=== PATIENT | male | born 1965 | race Caucasian/White ===

== ENCOUNTER 2024-07-24 12:36 | Outpatient (CLI) | payer OTHER, SELFPAY ==
--- NOTE | ~2024-07-24 | PE_ITS ---
EXAMINATION: PET_PETPSMAST_PT DATE: 07/24/2024 15:42 INDICATION: Malignant neoplasm of prostate. TECHNIQUE: 5.325 mCi of Ga-68 gozetotide was administered intravenously. Low dose computed tomography (CT) images were acquired from the base of the brain to the proximal thighs for attenuation correcti on and anatomic localization. Automated exposure control was employed. Dose-length product (DLP) was 1032 mGy-cm. Positron emission tomography (PET) images were acquired in the same distribution. COMPARISON: None FINDINGS: Head/neck: There are likely changes of right ocular lens replacement surgery. There are no pathologic ally enlarged lymph nodes. Chest: There is no pneumonia or pleural effusion. The heart size is normal. No pericardial effusion. There are coronary artery calcifications. There are no pathologically enlarged lymph nodes. Abdomen/pelvis/proximal thighs: There is an 8 mm cyst in the liver. The gallbladder, spleen, pancreas , and right adrenal gland are normal. There is a 4.4 cm mass in left adrenal gland measuring soft tis cherie attenuation with focal calcification without increased activity. The kidneys are normal. The pros velez is mildly enlarged. There is increased activity in the prostate with maximum SUV of 8.1. There i s diverticulosis of the colon without evidence of diverticulitis. There are no dilated loops of bowel . The appendix is normal. There are no pathologically enlarged lymph nodes. There is no ascites. Ther e is no osseous malignancy. IMPRESSION: 1. Mildly enlarged prostate with increased activity, consistent with primary malignancy. No evidence of metastatic prostate cancer. 2. 4.4 cm left adrenal mass without specific imaging features. If there is no outside imaging to conf irm that this finding is chronic, consider resection to exclude adrenal cortical carcinoma. Reviewed, dictated and finalized at location B. IMPRESSION: 1. Mildly enlarged prostate with increased activity, consistent with primary ma lignancy. No evidence of metastatic prostate cancer. 2. 4.4 cm left adrenal mass without specific imaging features. If there is no o utside imaging to confirm that this finding is chronic, consider resection to e xclude adrenal cortical carcinoma.
--- OUTSIDE RECORDS SUMMARY | 2024-07-24 13:56 | XMS_ITS | Encounter Summary ---
Author Organization [facility] Address [facility] [place] [address] Care Team Providers Care Certified Juvenile Probation Officer Name Role Phone Prince Yadav MD Primary Care Provider [phone] Encounter Details Date Type Department Care Team (Latest Contact Info) Description 07/16/2024 Scan HEALTH INFO SRVCS Scanned, Doc Med Group Social History Tobacco Use Types Packs/Day Years Used Date Smoking Tobacco: Never Passive Smoke Exposure: Never Smokeless Tobacco: Never Alcohol Use Standard Drinks/Week Comments Yes 0 (1 standard drink = 0.6 oz pur e alcohol) 2-3 per week PHQ-2 Answer Date Recorded Patient Health Questionnaire-2 Score 0 07/16/2024 Sex and Gender Information Value Date Recorded Sex Assigned at Male 07/09/2024 5:07 AM STEP FINISHER Legal Sex Male 6:27 PM CDT Gender Identity Not on file Sexual Orientation Not on file 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 [address] [place], [place] [phone] documented as of this encounter Visit Diagnoses Not on filedocumented in this encounter Care Teams Certified Juvenile Probation Officer Relationship Specialty Start Date End Date Prince Yadav MD [address] [place] [id number] PCP - General FAMILY PRACTICE 01/08/24 documented as of this encounter
--- OUTSIDE RECORDS SUMMARY | 2024-07-24 13:56 | XMS_ITS | Patient Health Summary ---
Author Organization [facility] Address [address] [place] [address] Care Team Providers Care Auto Polisher Name Role Phone Trav Porter MD Primary Care Provider [phone] Aman Louis MD Unavailable [phone] Note from [facility],non-owned Affiliates and Associated Physician Practices is amultiple site organization consisting of ambulatory clinics and hospital sitesin [place], [place], [place] and [place]. This disclosure is being madepursuant to the Care Everywhere program and may not contain all information available regarding this patient. Last updated 18.[facility] Allergies No known active allergies Medications * Be aware that medications may not be up to date on this document. Alwaysverify current medications with the patient. * losartan (COZAAR) 100 MG tablet(Started 12/16/2019) Take 100 mg by mouth once daily * atorvastatin (LIPITOR) 40 MG tablet(Started 11/04/2019) Take 40 mg by mouth once daily * metoprolol succinate XL 24hr (TOPROL XL) 25 MG tablet(Started 11/04/2019) Take 25 mg by mouth once daily * hydroCHLOROthiazide (HYDRODIURIL) 25 MG tablet(Started 05/23/2019) Take 1 tablet by mouth once daily * amLODIPine (NORVASC) 10 MG tablet(Started 06/18/2019) Take 10 mg by mouth once daily * omeprazole (PRILOSEC) 20 MG capsule(Started 11/06/2019) Take 20 mg by mouth once daily * meloxicam (MOBIC) 15 MG tablet(Started 07/08/2021) Take 1 (one) tablet by mouth once daily LAST REFILL UNTIL SEEN IN THE OFFICE * meloxicam (Mobic) 15 MG tablet(Started 07/28/2023) TAKE 1 TABLET BY MOUTH EVERY DAY 5 refills by 07/27/2024 Active Problems Problem Noted Date Diagnosed Date Primary osteoarthritis of left knee 01/28/2020 Coronary artery disease invo lving [place] coronary artery of [place] heart without angina pectoris 08/05/2019 Thoracic aortic aneurysm without rupture 020 Social History Tobacco Use Types Packs/Day Years Used Date Smoking Tobacco: Never Smokeless Tobacco: Never Sex and Gender Information Value Date Recorded Sex Assigned at Not on file Gender Identity Not on file Sexual Orientation Not on file Last Filed Vital Signs Vital Sign Reading Time Taken Comments Blood Pressure - - Pulse - - Temperature - - Respiratory Rate - - Oxygen Saturation - - Inhaled Oxygen Concentration - - Weight 81.6 kg (180 lb) 01/28/2020 10:06 AM CDT Height 172.7 cm (5' 8 ) 01/28/2020 10:06 AM CDT Body Mass Index 27.37 01/28/2020 10:06 AM CDT Procedures * XR KNEE LEFT 3VW(Performed 08/13/2021) Performed for Left knee pain, unspecified chronicity Results * XR KNEE LEFT 3VW (08/13/2021 9:40 AM CDT) Anatomical Region Laterality Modality Lower Extremity Computed Radiogr aphy Narrative 08/13/2021 9:41 AM CDT Ronda Aguirre RT(R) 08/24/2021 10:44 AM See progress notes for results Aman Louis MD DIAGNOSTIC IMAGING [facility] Care Teams Auto Polisher Relationship Specialty Start Date End Date Trav Porter MD [address] [id number] PCP - General Family Medicine 01/28/20 [place] [id number] [address] Surgeon Orthopedic Surgery 01/28/20
--- OUTSIDE RECORDS SUMMARY | 2024-07-24 13:56 | XMS_ITS | Clinical Summary ---
Author Organization [facility] [employer] Address [address] [facility] [place] [address] Care Team Providers Care Smoke Chaser Name Role Phone Trav Porter MD Primary Care Provider [phone] Aman Louis MD Unavailable [phone] Source Comments [facility] [employer],non-owned Affiliates and Associated Physician Practices is amultiple site organization consisting of ambulatory clinics and hospital sitesin [place], [place], [place] and [place]. This disclosure is being madepursuant to the Care Everywhere program and may not contain all information available regarding this patient. Last updated 18.[facility] [employer] Allergies No known active allergies Medications * Be aware that medications may not be up to date on this document. Alwaysverify current medications with the patient. Medication Sig Dispensed Refills Start Date End Date Status losartan (COZAAR) 100 MG tablet Take 100 mg by mouth once daily 12/16/2019 Active atorvastatin (LIPITOR) 40 MG tablet Take 40 mg by mouth once daily 11/04/2019 Active metoprolol succinate XL 24hr (TOPROL XL) 25 MG tablet Take 25 mg by mouth once daily 11/04/2019 Active hydroCHLOROthiazide (HYDRODIURIL) 25 MG tablet Take 1 tablet by mouth once daily 05/23/2019 Active amLODIPine (NORVASC) 10 MG tablet Take 10 mg by mouth once daily 06/18/2019 Active omeprazole (PRILOSEC) 20 MG capsule Take 20 mg by mouth once daily 11/06/2019 Active meloxicam (MOBIC) 15 MG tabletIndications:Prima ry osteoarthritis of left knee Take 1 (one) tablet by mouth once daily LAST REFILL UNTIL SEEN IN THE OFFICE 30 tablet 07/08/2021 Active meloxicam (Mobic) 15 MG tablet TAKE 1 TABLET BY MOUTH EVERY DAY 30 tablet 5 07/28/2023 Active Active Problems Problem Noted Date Diagnosed Date Primary osteoarthritis of left knee 01/28/2020 Coronary artery disease invo lving [place] coronary artery of [place] heart without angina pectoris 08/05/2019 Thoracic aortic aneurysm without rupture 020 Encounters Date Type Department Care Team Description 07/07/2024 Refill [facility] [address] [place] [address], [facility] [address] [place] [phone] Aman Louis MD Refill Request from Last 3 Months Social History Tobacco Use Types Packs/Day Years [...] Mass Index 27.37 01/28/2020 10:06 AM CDT Plan of Treatment Upcoming Encounters Date Type Department Care Team (Late st Contact Info) Description 08/08/2024 11:20 AM CDT Office Visit [address], [address] [phone] Kenneth Barrientos PA-C [address] [phone] Health Maintenance Due Date Last Done Comments COLOGUARD (AGES 45-75) - COL ON CA SCREENING 1965 COLON MONITORING 1965 COLONOSCOPY - COLON CA SCREENING 1965 CT COLONOGRAPHY - COLON CA SCREENING 1965 Colorectal Cancer Screening 1965 FIT - COLON CA SCREENING 1965 FLEX SIG - COLON CA SCREENING 1965 HIV SCREENING 1980 HEPATITIS C SCREENING 11/20/1983 DTAP/TDAP/TD VACCINES (1 - Tdap) 1984 HEPATITIS B VACCINE (1 of 3 - 19+ 3-dose series) 1984 PNEUMOCOCCAL VACCINE 50+ (1 of 1 - PCV) 11/25/2015 ZOSTER VACCINE (1 of 2) 11/25/2015 COVID-19 VACCINE (1 - 2023-2 5 season) 2024 INFLUENZA VACCINE (#1) 2024 DEPRESSION SCREENING 05/15/2024 HIB VACCINE Aged Out No longer eligi ble based on patient's age to complete this topic HPV VACCINE Aged Out No longer eligi ble based on patient's age to complete this topic MENINGOCOCCAL (Group B) VACC INE SHARED DECISION-MAKING Aged Out No longer eligibl e based on patient's age to complete this topic MENINGOCOCCAL GROUPS A/C/Y/W VACCINE Aged Out No longer eligible b ased on patient's age to complete this topic Care Teams Smoke Chaser Relationship Specialty Start Date End Date Trav Porter MD [address] [phone] PCP - General Family Medicine 01/28/20 [place] [address] [address] Surgeon Orthopedic Surgery 01/28/20
--- OUTSIDE RECORDS SUMMARY | 2024-07-24 13:56 | XMS_ITS | Referral Summary ---
Author Organization [facility] Address [facility] [place] [address] Care Team Providers Care Inventory Coordinator Name Role Phone Trav Porter MD Primary Care Provider [phone] Allergies No known active allergies Medications amLODIPine (NORVASC) 10 mg tablet TK 1 T PO QD 06/18/2019 Active benazepriL (LOTENSIN) 20 mg tablet 05/23/2019 Active hydroCHLOROthia zide (HYDRODIURIL) 25 mg tablet TK 1 T PO ONCE D 05/23/2019 Active meloxicam (MOBIC) 15 mg tablet TK 1 T PO QD WITH FOOD 06/21/2019 Active omeprazole (PriLOSEC) 20 mg capsule Take 20 mg by mouth daily 07/05/2019 Active sildenafil (VIAGRA) 50 mg tablet Take by mouth daily as needed 07/08/2019 Active simvastatin (ZOCOR) 10 mg tablet TK 1 T PO QHS 06/21/2019 Active loratadine 10 mg capsule Take 1 capsule by mouth daily as needed 03/12/2013 Active metoprolol XL (TOPROL-XL) 25 mg extended release tablet Take 25 mg by mouth daily 11/04/2019 Active losartan (COZAAR) 50 mg tablet Take 50 mg by mouth daily 11/04/2019 Active atorvastatin (LIPITOR) 40 mg tablet Take 40 mg by mouth daily 11/04/2019 Active Active Problems Problem Noted Date Diagnosed Date Primary osteoarthritis of left knee 07/09/2019 Left knee pain 07/09/2019 Effusion of left knee 07/09/2019 Chondromalacia of patella 04/20/2010 Social History Tobacco Use Types Packs/Day Years Used Date Smoking Tobacco: Never Smokeless Tobacco: Never Alcohol Use Standard Drinks/Week Comments Yes 0 (1 standard drink = 0.6 oz pur e alcohol) Personal Safety Answer Date Recorded Getting School Help Needed Not on file 07/28 Sex and Gender Information Value Date Recorded Sex Assigned at Not on file 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 Gender Identity Not on file Sexual Orientation Not on file 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 on file Not on file Not on serina e Last Filed Vital Signs Vital Sign Reading Time Taken Comments Blood Pressure - - Pulse - - Temperature - - Respiratory Rate - - Oxygen Saturation - - Inhaled Oxygen Concentration - - Weight 79.8 kg (176 lb) 11/05/2019 9:47 AM CDT Height 172.7 cm (5' 8 ) 11/05/2019 9:47 AM CDT Body Mass Index 26.76 11/05/2019 9:47 AM CDT Plan of Treatment Not on file Insurance [facility] CHO[facility] PLUS [facility] CHO[facility] PLUS Care Teams Inventory Coordinator Relationship Specialty Start Date End Date Trav Porter MD [address] [place] [address] PCP - General Family Medicine 07/01/19
--- OUTSIDE RECORDS SUMMARY | 2024-07-24 13:56 | XMS_ITS | Clinical Summary ---
Author Organization [facility] Address [address] [place] [address] Care Team Providers Care Occupational Therapy Professor Name Role Phone Prince Yadav MD Primary Care Provider [phone] Allergies No known active allergies Medications Multiple Vitamin (DAILY VITAMIN OR) Take 1 tablet by mouth daily. Active glucosamine-chond roitin 500-400 MG Cap Take 1 capsule by mouth daily. Active meloxicam 15 MG tablet Take 1 tablet (15 mg total) by mouth daily. 020 Active Zinc 100 MG Tab Take 1 tablet by mouth daily. Active Ascorbic Acid (VITAMIN C) 100 MG tablet Take 1 tablet (100 mg total) by mouth daily. Active clobetasol (TEMOVATE) 0.05 % external solution Apply topically 2 (two) times daily. 023 Active hydroCHLOROthiazi de (HYDRODIURIL) 25 MG tabletIndications :Hypertension, essential TAKE 1 TABLET(25 MG) BY MOUTH DAILY 90 tablet 3 024 Active losartan (COZAAR) 100 MG tablet TAKE 1 TABLET(100 MG) BY MOUTH DAILY 90 tablet 3 024 Active metoprolol succinate ER (TOPROL-XL) 25 MG 24 hr tablet TAKE 1 TABLET(25 MG) BY MOUTH DAILY 90 tablet 3 024 Active amLODIPine (NORVASC) 10 MG tablet TAKE 1 TABLET(10 MG) BY MOUTH DAILY 90 tablet 2 024 Active omeprazole (PRILOSEC) 40 MG capsule TAKE 1 CAPSULE BY MOUTH 30 MINUTES BEFORE MORNING MEAL ONCE DAILY FOR 90 DAYS Active sildenafil (VIAGRA) 50 MG tabletIndications :Erectile dysfunction, unspecified erectile dysfunction type Take 1 tablet (50 mg total) by mouth daily as needed for Erectile Dysfunction. 30 tablet 3 024 Active atorvastatin (LIPITOR) 40 MG tabletIndications :Mixed hyperlipidemia Take 1 tablet (40 mg total) by mouth nightly at bedtime. PLEASE CALL OFFICE TO SCHEDULE APPOINTMENT 30 tablet Active tamsulosin (FLOMAX) 0.4 MG Cap Take 1 capsule (0.4 mg total) by mouth daily. 30 capsule Active Additional Information Patient not taking.Reported on 07/16/2024 fexofenadine (BRANDON) 180 MG tablet Take 1 tablet (180 mg total) by mouth daily as needed for Allergies. Active Loratadine 10 MG Cap Take 1 capsule by mouth daily as needed. 013 2024 Discontinued respiratory syncytial virus vaccine, recombinant (ABRYSVO) 120 mcg/0.5mL injectionIndicati ons:Prostate cancer ([facility]) Inject 0.5 mLs into the muscle once for 1 dose. 0.5 mL 025 2024 Active Problems Problem Noted Date Diagnosed Date Skin lesion 01/09/2020 Coronary artery disease invo lving [place] coronary artery of [place] heart without angina pectoris 08/05/2019 Assessment & Plan (07/15/2024 10:44 AM PROCUREMENT ACCOUNTANT): He has coronary artery calcifications present on CT scans. Continue risk factor modifications with atorvastatin, low fat and low cholesterol diet. Assessment & Plan (07/16/2023 7:41 AM PROCUREMENT ACCOUNTANT): Assessment: He has coronary artery calcification on a CT scan. Continue aspirin Dose: 81mg and atorvastatin. Lifestyle modifications: follow a low fat, low cholesterol diet Assessment & Plan (06/21/2021 9:23 AM PROCUREMENT ACCOUNTANT): Assessment: He has coronary artery calcification on a CT scan. Plan: : Diagnostic Testing: Antiplatelet therapy: continue Aspirin Dose: 81mg Lipid lowering medications: continue atorvastatin Lifestyle modifications: follow a low fat, low cholesterol diet Ascending aortic aneurysm 08/05/2019 Assessment & Plan (07/15/2024 10:46 AM PROCUREMENT ACCOUNTANT): Stable ascending aortic aneurysm on CTA from 2023. Plan for repeat imaging in 1- 2 years. Continue blood pressure control with losartan and metoprolol. Assessment & Plan (07/11/2023 6:28 AM PROCUREMENT ACCOUNTANT): Most recent CTA chest shows stable aneurysm. Surgical intervention not needed at this time. Can repeat imaging in 2-3 years. Continue medical management with beta- marianne and antihypertensives. Of note, Assessment & Plan (06/21/2021 9:22 AM PROCUREMENT ACCOUNTANT): Assessment: Repeat imaging of ascending aortic aneurysm is stable compared to prior imaging. Plan: Repeat imaging of aneurysm in 2 years Continue blood pressure control Left knee pain 07/09/2019 Primary osteoarthritis of left knee 07/09/2019 Erectile dysfunction, unspecified erectile dysfu nction type 10/03/2018 Gastroesophageal reflux disease without esophagi tis 09/05/2012 Allergic rhinitis 09/05/2012 Overview (09/26/2018): Description: seasonal Mixed hyperlipidemia 09/05/2012 Assessment & Plan (07/15/2024 10:49 AM PROCUREMENT ACCOUNTANT): Last lipid panel with LDL not calculated due to elevated triglyceride levels. Encouraged lifestyle and exercise modifications for further control. Continue atorvastatin. Assessment & Plan (07/16/2023 7:43 AM PROCUREMENT ACCOUNTANT): His last lipid panel was from 2021 and he is going to get a more up-to-date lipid panel with a new primary care physician. Continue atorvastatin. Assessment & Plan (06/21/2021 9:26 AM PROCUREMENT ACCOUNTANT): Assessment: elevated cholesterol only LDL result meets goal Plan: : Diagnostic Testing: none Lipid lowering medications: continue atorvastatin Lifestyle modifications: diet, regular aerobic exercise and weight loss Essential hypertension 09/05/2012 Overview (09/26/2018): Description: 1991, 1997 echo Assessment & Plan (07/15/2024 10:48 AM PROCUREMENT ACCOUNTANT): Blood pressure slightly elevated in office today. Patient regularly monitor blood pressure at home with an average reading of 130-140/80-90mmHg. Continue losartan, metoprolol, and HCTZ Assessment & Plan (07/16/2023 7:42 AM PROCUREMENT ACCOUNTANT): Blood pressure mildly elevated. Encouraged home blood pressure monitoring and he is checking his blood pressure at home and is usually well-controlled. Continue amlodipine, losartan, metoprolol. Assessment & Plan (06/21/2021 9:25 AM PROCUREMENT ACCOUNTANT): Assessment: BP noted to be mildly elevated today in office though normal at other visits Plan: : Diagnostic Testing: none Antihypertensive medications: continue hydrochlorothiazide, losartan and amlodipine Lifestyle modifications: current treatment plan is effective, no change in therapy Encouraged home blood pressure monitoring Chondromalacia of patella 04/20/2010 Arthritis Cervical strain Resolved Problems Problem Noted Date Diagnosed Date Resolved Date Prostate cancer screening 09/05/2012 Encounters Date Type Department Care Team Description 07/16/2024 4:40 PM PROCUREMENT ACCOUNTANT Office Visit [facility] - [place] [phone] Prince Yadav MD Follow Up (Patient is present for 6 month follow up) 07/16/2024 Scan [facility] Scanned, [facility] 07/16/2024 Travel 07/15/2024 10:00 AM PROCUREMENT ACCOUNTANT [facility], [address] [address] Mike Escamilla MD Lanter, Megan N, [place] Coronary Artery Disease (Annual); Hypertension; Lipids; Thoracic Aortic Aneurysm 07/15/2024 Travel 07/09/2024 6:10 PM PROCUREMENT ACCOUNTANT - 07/09/2024 9:11 PM PROCUREMENT ACCOUNTANT Emergency [facility] [place] [address] Schuyler Lizarraga MD Urinary Catheter Problem Discharge Disposition: Home or Self Care (Routine Discharge) 07/09/2024 4:49 AM PROCUREMENT ACCOUNTANT - 07/09/2024 9:56 AM PROCUREMENT ACCOUNTANT Emergency [facility] [place] [address] Avery Salazar MD,PHD Hematuria Discharge Disposition: Home or Self Care (Routine Discharge) 07/09/2024 Travel from Last 3 Months Immunizations Name Administration Dates Next Due Td (Tenivac) preservative free 05/24/2005 Tdap (Generic) 07/27/2015 Family History Medical History Relation Comments Hypertension Father Open Heart Father artificial valve Father Stroke Mother Relation Status Comments Brother 1 Alive Brother 2 Alive Brother 3 Alive Father (Age 91) Maternal Grandfather Maternal Grandmother Mother (Age 90) Paternal Grandfather Paternal Grandmother Sister 1 Alive Sister 2 Alive Sister 3 Alive Social History Tobacco Use Types Packs/Day Years Used Date Smoking Tobacco: Never Passive Smoke Exposure: Never Smokeless Tobacco: Never Tobacco Cessation:Counseling Given: No Alcohol Use Standard Drinks/Week Comments Yes 0 (1 standard drink = 0.6 oz pur e alcohol) 2-3 per week PHQ-2 Answer Date Recorded Patient Health Questionnaire-2 Score 0 07/16/2024 Sex and Gender Information Value Date Recorded Sex Assigned at Male 07/09/2024 5:07 AM PROCUREMENT ACCOUNTANT Legal Sex Male 6:27 PM CDT Gender Identity Not on file Sexual Orientation Not on file Occupation Industry Job Start Date Job End Date [employer] IN[employer]ER Not on file Not on file Not on file Last Filed Vital Signs Vital Sign Reading Time Taken Comments Blood Pressure 130/70 07/16/2024 4:39 PM PROCUREMENT ACCOUNTANT Pulse 70 07/16/2024 4:39 PM PROCUREMENT ACCOUNTANT Temperature 37.2 C (98.9 F) 07/16/2024 4:39 PM PROCUREMENT ACCOUNTANT Respiratory Rate 16 07/09/2024 9:09 PM PROCUREMENT ACCOUNTANT Oxygen Saturation 99% 07/16/2024 4:39 PM PROCUREMENT ACCOUNTANT Inhaled Oxygen Concentration - - Weight 82.1 kg (181 lb) 07/16/2024 4:39 PM PROCUREMENT ACCOUNTANT Height 175.3 cm (5' 9 ) 07/15/2024 9:50 AM PROCUREMENT ACCOUNTANT Body Mass Index 26.73 07/15/2024 9:50 AM PROCUREMENT ACCOUNTANT Plan of Treatment Upcoming Encounters Date Type Department Care Team (Late st Contact Info) Description 03/17/2025 10:30 AM PROCUREMENT ACCOUNTANT Office Visit [facility], [facility] [address] [place], [place] [id number] Mike Escamilla MD [facility]. [address] [place], [place] [id number] Health Maintenance Due Date Last Done Comments Colorectal Cancer Screening Colonoscopy (10 Years) 1965 Pneumococcal Vaccine: Pediatrics (0 to 5 Years) and At-Risk Patients (6 to 64 Years) (1 of 2 - PCV) 11/25/1971 Hepatitis C 11/25/1983 Hepatitis B Vaccines (1 of 3 - 19+ 3-dose series) 1984 Zoster Vaccines (1 of 2) 11/25/2015 ASCVD LDL 03/31/2023 03/31/2022, 08/0 06/2020, 03/13/2020, Additional history exists Annual Physical 03/31/2023 03/31/2022, 08/0 06/2020, 11/06/2019, Additional history exists COVID-19 Vaccine ( season) 2024 05/13/2021, 07/31/2020, 07/06/2020 Influenza Adult (#1) 2024 DTaP, Tdap and Td Vaccines (2 - Td or Tdap) 07/26/2025 07/27/2015, 05/24/2005 PHQ-2 (Physician Kirby) Completed 07/16/2024 Meningococcal B Vaccine Aged Out No l onger eligible based on patient's age to complete this topic Meningococcal Vaccine Aged Out No panda candis eligible based on patient's age to complete this topic RSV Immunizations Under 20 Months Aged Out No longer eligible based on patient's age to complete this topic Procedures Procedure Name Priority Date/Time Associated Diagnosis Comments URINE BACTERIA CULTURE STAT 07/09/2024 5:47 AM PROCUREMENT ACCOUNTANT HC URINALYSIS AUTO W/O MICRO STAT 07/09/2024 5:47 AM PROCUREMENT ACCOUNTANT LIPID PANEL Routine 03/31/2022 10:32 AM PROCUREMENT ACCOUNTANT Essential hypertension from Last 3 Months or Most Recently Relevant to Health Maintenance Results * (ABNORMAL) URINALYSIS (07/09/2024 5:47 AM PROCUREMENT ACCOUNTANT) SPECIMEN TYPE URINE [facility] CATH 07/09/2024 5:52 AM [facility] COLOR (U) BROWN 07/09/2024 6:10 AM [facility] TRANSPARENCY TURBID 07/09/2024 6:10 AM [facility] SPECIFIC GRAVITY (U) 1.005 1.001 - 1.030 07/09/2024 6:10 AM [facility] U PH 7.0 5.0 - 9.0 07/09/2024 6:10 AM [facility] LEUKOCYTES (U) NEGATIVE NEGATIVE 07/09/2024 6:10 AM [facility] NITRITES NEGATIVE NEGATIVE 07/09/2024 6:10 AM [facility] PROTEIN RANDOM (U) 100(H) <30 MG/DL 07/09/2024 6:10 AM [facility] GLUCOSE (U) NORMAL NORMAL MG/DL 07/09/2024 6:10 AM [facility] KETONES MG/DL (U) NEGATIVE NEGATIVE MG/DL 07/09/2024 6:10 AM [facility] UROBILINOGEN NORMAL NORMAL MG/DL 07/09/2024 6:10 AM [facility] BILIRUBIN (U) NEGATIVE NEGATIVE MG/DL 07/09/2024 6:10 AM [facility] BLOOD (U) 3+(A) NEGATIVE 07/09/2024 6:10 AM [facility] WBC/HPF 3 <6 /HPF 07/09/2024 6:10 AM PROCUREMENT ACCOUNTANT [facility] RBC/HPF 83(H) <6 /HPF 07/09/2024 6:10 AM PROCUREMENT ACCOUNTANT [facility] BACTERIA (U) RARE(A) NONE /HPF 07/09/2024 6:10 AM PROCUREMENT ACCOUNTANT [facility] URINE SPECIMEN OBTAINED VIA [employer]WELL[employer] URINARY CATHETER / Unknown 07/09/2024 5:47 AM PROCUREMENT ACCOUNTANT Avery Salazar MD,PHD URINE ORDERABLES Final Res ult Performing Organization Address City/[facility]/ZIP Co de Phone Number [facility] [address] [place] [address], [place] [phone] * CULTURE URINE (07/09/2024 5:47 AM PROCUREMENT ACCOUNTANT) SPEC DESCRIPTION URINE D[facility]AM CATH 07/09/2024 5:52 AM PROCUREMENT ACCOUNTANT [facility] SPECIAL REQUESTS NO SPECIAL REQUEST 07/09/2024 5:52 AM PROCUREMENT ACCOUNTANT [facility] CULTURE RESULT NO GROWTH 2 DAYS 07/11/2024 8:18 AM PROCUREMENT ACCOUNTANT [facility] URINE SPECIMEN OBTAINED VIA [employer] URINARY CATHETER / Unknown 07/09/2024 5:47 AM PROCUREMENT ACCOUNTANT 07/09/2024 5:58 AM PROCUREMENT ACCOUNTANT Avery Salazar MD,PHD MICROBIOLOGY - GENERAL ORD ERABLES Final Result [facility] [address] [place] [address], [place] [phone] * LIPID PANEL (03/31/2022 10:32 AM PROCUREMENT ACCOUNTANT) CHOLESTEROL 149 0 - 199 MG/DL [facility] TRIGLYCERIDES 148 0.00 - 150.00 MG/DL [facility] Comment: NCEP REFERENCE VALUES FOR TRIGLYCERIDES: NORMAL: <150 MG/DL BORDERLINE HIGH: 150 - 199 MG/DL HIGH: 200 - 499 MG/DL VERY HIGH: >/= 500 MG/DL HDL 45 >40 MG/DL [facility] LDL (CALCULATED) 74 0 - 99 MG/DL [facility] Comment: CUTOFF VALUES RECOMMENDED BY THE NATIONAL CHOLESTEROL EDUCATION PROGRAM: DESIRABLE: CHOLESTEROL <200 MG/DL LDL <100 MG/DL BORDERLINE: CHOLESTEROL 200-239 MG/DL LDL 101-159 MG/DL HIGHER RISK: CHOLESTEROL >240 MG/DL LDL >160 MG/DL, HDL <40 MG/DL NON HDL CHOLESTEROL 104 NO REFERENCE RANGE MG/DL [facility] Comment: A REASONABLE GOAL FOR NON-HDL CHOLESTEROL IS ONE THAT IS 30 MG/DL HIGHER THAN THE LDL CHOLESTEROL GOAL. CHOL/HDL RATIO 3.3 0.0 - 5.0 . [facility] Comment:IS PATIENT FASTING?- >YES 03/31/2022 10:3 2 AM PROCUREMENT ACCOUNTANT 04/01/2022 6:15 AM PROCUREMENT ACCOUNTANT us Trav Porter MD LABORATORY Final Resul t [employer] [address] [place] [address], from Last 3 Months or Most Recently Relevant to Health Maintenance Insurance Care Teams Occupational Therapy Professor Relationship Specialty Start Date End Date Prince Yadav MD [address] [place] [id number] PCP - General FAMILY PRACTICE 01/08/24
--- OUTSIDE RECORDS SUMMARY | 2024-07-24 13:56 | XMS_ITS | Clinical Summary ---
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 Surgical History Surgery Date Site/Laterality Comments KNEE ARTHROSCOPY Medical History Medical History Date Comments Hypercholesteremia Hypertension Osteoarthritis Family History Medical History Relation Name Comments Hypertension Brother Arthritis Father Heart disease Father Hypertension Father Arthritis Mother Scoliosis Mother Hypertension Sister Kyphosis Son Relation Name Status Comments Brother Father Mother Sister Son Social History Tobacco Use Types Packs/Day Years Used Date Smoking Tobacco: Never Smokeless Tobacco: Never Alcohol Use Standard Drinks/Week Comments Yes 0 (1 standard drink = 0.6 oz pur e alcohol) Personal Safety Answer Date Recorded Getting School Help Needed Not on file 07/28 Sex and Gender Information Value Date Recorded Sex Assigned at Not on file Legal Sex Male 2:51 AM EDUCATION REVIEWER Gender Identity Not on file Sexual Orientation Not on file Occupation Industry Job Start Date Job End Date [employer] Not on file Not on file Not on serina e Obstetrics History Last Filed Vital Signs Vital Sign Reading [...] Plan of Treatment Not on file Insurance [facility] CHOICE PLUS [facility] HMO/PPO Address: [facility] [address] [place] [address] [facility] CHOICE PLUS [facility] HMO/PPO Address: [place] [address] Care Teams Casting Machine Operator Automatic Relationship Specialty Start Date End Date Trav Porter MD [address] [place] [id number] PCP - General Family Medicine 07/01/19
--- OUTSIDE RECORDS SUMMARY | 2024-07-24 13:56 | XMS_ITS | Referral Summary ---
Author Organization [facility] Address [address] [facility] [place] [address] Care Team Providers Care Bed Spring Maker Name Role Phone Trav Porter MD Primary Care Provider [phone] Aman Louis MD Unavailable [phone] Source Comments [facility],non-owned Affiliates and Associated Physician Practices is amultiple site organization consisting of ambulatory clinics and hospital sitesin [place], [place], [place] and [place]. This disclosure is being madepursuant to the Care Everywhere program and may not contain all information available regarding this patient. Last updated 18.[facility] Encounters Date Type Department Care Team Description 07/07/2024 Refill [facility] [address] [place] [address], [address] [phone] Aman Louis MD Refill Request from Last 3 Months Allergies No known active allergies Medications * [...] knee 01/28/2020 Coronary artery disease invo lving [place] coronary artery of [place] heart without angina pectoris 08/05/2019 Thoracic aortic [...] Description 08/08/2024 11:20 AM CDT Office Visit [facility] [address] [phone] Kenneth Barrientos PA-C [address] [phone] Care Teams Bed Spring Maker Relationship Specialty Start Date End Date Trav Porter MD [address] [phone] PCP - General Family Medicine 01/28/20 [place] [address] [place] [phone] Surgeon Orthopedic Surgery 01/28/20
== END 2024-07-24 12:37 | disposition home or self-care (01) ==
LOC: ANHIMG 12:42
PROVIDERS: Visit Provider Urology
DX: C61 Malignant neoplasm of prostate (principal)
CPT/HCPCS: 78815; A9596